=== PATIENT | male | born 1965 | race Caucasian/White ===

== ENCOUNTER 2016-07-01 10:53 | Emergency (ER) | payer OTHER ==
[2016-07-01] MEDS ORDERED: TORAdol 30 mg Injection IM ONE (11:12)
[2016-07-01] MEDS ORDERED: TORAdol 30 mg Injection ONE (11:16)
--- NOTE | 2016-07-01 11:30 | ERPHSYRPT ---
- History of Present Illness Time Seen by Provider: 07/01/16 11:05 Source: patient Patient Subjective Stated Complaint: pt states 2 years ago he had cervicle fusion. pt states for the past 2 months he has had neck pain and left shoulder pain. pt also c/o numbness to left arm. Triage Nursing Assessment: pt pink, warm, dry. 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 no deformity noted. tenderness to left neck and left scapula. radial and brachial pulses strong. Physician History: CC: neck pain Hx: 50 y/o patient with chornic neck pain, worse for a few months. Had prior neck fusion per Dr Blair. He works [employer]. No specific injury. He has tingling in left hand finger tips that has worsened. He has chronic urinary and bowel incontinence from prior rectal surgery not related to neck. No fever or chills. No hx of CA. He called Dr Blair's nurse today, was told they were here in a clinic and he was to come to this ER. Severity: moderate (ibuprofen for pain helps some) Allergies/Adverse Reactions: No Known Drug Allergies Allergy (Unverified 07/01/16 11:08) Home Medications: Ibuprofen [Motrin Ib] 800 mg PO TIDPRN PRN 07/01/16 [History] Hx Tetanus, Diphtheria Vaccination/Date Given: Yes (unknown) Hx Influenza Vaccination/Date Given: No Hx Pneumococcal Vaccination/Date Given: No Immunizations Up to Date: Yes - Review of Systems Constitutional: No Fever, No Chills Abdominal/Gastrointestinal: No Abdominal Pain Genitourinary Symptoms: Incontinence (chronic) Musculoskeletal: Neck Pain, No Back Pain Neurological: Parasthesia, No Focal Weakness, No Headache - Past Medical History Pertinent Past Medical History: Yes Neurological History: Migraines ENT History: No Pertinent History Cardiac History: No Pertinent History Respiratory History: No Pertinent History Endocrine Medical History: No Pertinent History Musculoskeletal History: No Pertinent History GI Medical History: No Pertinent History History: No Pertinent History Psycho-Social History: No Pertinent History Male Reproductive Disorders: Other Other Medical History: bowel incontinence. bladder incontinence - Past Surgical History Past Surgical History: Yes Neuro Surgical History: No Pertinent History Cardiac: No Pertinent History Respiratory: No Pertinent History Gastrointestinal: No Pertinent History Genitourinary: No Pertinent History Musculoskeletal: No Pertinent History Male Surgical History: No Pertinent History Other Surgical History: cervicle fusion. anal surgery - Social History Smoking Status: Current every day smoker How long have you smoked: 30 Exposure to second hand smoke: Yes Drug Use: none Patient Lives Alone: No - Nursing Vital Signs Nursing Vital Signs: Initial Vital Signs Temperature 97.7 F Temperature Source Oral Pulse Rate 67 Respiratory Rate 18 Blood Pressure [Right Arm] 164/95 Pain Intensity 5 - Physical Exam General Appearance: alert Eye Exam: PERRL/EOMI Ears, Nose, Throat Exam: normal ENT inspection, moist mucous membranes Neck Exam: limited range of motion, midline tenderness Respiratory Exam: normal breath sounds, chest tenderness, lungs clear Cardiovascular Exam: regular rate/rhythm Gastrointestinal/Abdomen Exam: soft, No tenderness, No distention Back Exam: normal inspection, normal range of motion Extremity Exam: normal inspection, normal range of motion Neurologic Exam: alert, oriented x 3, cooperative, sensation nml, other ( ambulatory with normal gait), No motor deficits Skin Exam: warm, dry, No rash SpO2 Interpretation: normal SpO2: 99 Oxygen Delivery: Room Air - Course Nursing assessment & vital signs reviewed: Yes - Radiology Exams cervical X-ray Interpretation: Teleradiologist Report (no fx or subluxation, screws fractured) Ordered Tests: Active Orders 24 hr Category Date Time Status CERVICAL SPINE MINIMUM 4 VIEWS Stat Exams 07/01/16 11:14 Completed Medication Summary Discontinued Medications Generic Name Dose Route Start Last Admin Trade Name Jacoby PRN Reason Stop Dose Admin Ketorolac Tromethamine 60 mg 07/01/16 11:12 07/01/16 11:17 Toradol 30 Mg Injection IM 07/01/16 11:13 60 mg STAT ONE Administration Ketorolac Tromethamine Confirm 07/01/16 11:16 Toradol 30 Mg Injection Administered 07/01/16 11:17 Dose 60 mg .ROUTE .STK-MED ONE - Progress Progress Note: 07/01/16 12:[address] Blair at 1PM today. Toradol was given here for symptom relief. Counseled pt/family regarding: diagnosis, need for follow-up, rad results - Departure Time of Disposition: 12:21 Departure Disposition: Home Clinical Impression: Cervicalgia, fractured cervical screw, Cervical radiculopathy Condition: Stable Critical Care Time: No Referrals: LEYDA ROSENBERG [Primary Care Provider] - JIMI BLAIR [ACTIVE STAFF] - 07/01/16 1:00 pm (See Dr Blair at [facility] at 1PM today ) Instructions: Numbness/tingling, Cervical Radiculopathy Additional Instructions: See Dr Blair at 1PM
--- NOTE | 2016-07-01 12:18 | XRAY ---
Indication: Neck pain and left arm numbness. Comparison: February 20, 2015. 6 projections of the cervical spine again demonstrates normal alignment with previous C4-C6 fusion surgery with again anterior fixation plate, screws, and intervertebral spacers unchanged in position. Both C4 screws now appear fractured without displacement. Disc spaces maintained. Stable well-circumscribed ossification posterior to the C6 spinous process either developmental versus old injury. Again no acute fracture, subluxation, or prevertebral soft tissue swelling. Oblique images demonstrates bilateral C4-C6 foraminal narrowing due to uncal spurring. Impression: 1. Again C4-C6 fusion surgery with hardware in situ. C4 screws are now fractured. 2. Bilateral C4-C6 foraminal narrowing, not previously imaged. 3. Negative for acute fracture/subluxation.
[2016-07-01 12:30] VITALS: BP 154/84; PULSE 76; O2SAT 100
== END 2016-07-01 12:30 | disposition home or self-care (01) ==
LOC: ED 10:53
DX: M54.2 Cervicalgia (principal); M54.12 Radiculopathy, cervical region; Z98.890 Other specified postprocedural states; M25.512 Pain in left shoulder; R20.0 Anesthesia of skin
CPT/HCPCS: 72050; 96372; 99284; J1885

== ENCOUNTER 2018-02-05 13:47 | Emergency (ER) | payer OTHER ==
--- NOTE | 2018-02-05 13:51 | ERPHSYRPT ---
- History of Present Illness Time Seen by Provider: 02/05/18 13:49 Source: patient Exam Limitations: no limitations Physician History: 52 y/o white male presents with right post leg pain. began approx 01/25/18, one week after a right shoulder surgery. he denies injury to right lower leg. he describes pain as sharp and shooting down post aspect of right leg to calf with ambulation. pts tramadol not helping. Method of Injury: other (no injury) Occurred: last week (2 weeks ago) Severity of Pain-Max: moderate Severity of Pain-Current: mild (mild to mod) Lower Extremities Pain: hip: right (post), leg: right (post), knee: right (post) , thigh: right (post) Modifying Factors: Improves With: movement (worsens) Associated Symptoms: none Allergies/Adverse Reactions: No Known Drug Allergies Allergy (Verified 02/05/18 14:04) Home Medications: Ibuprofen [Motrin Ib] 800 mg PO TIDPRN PRN 07/01/16 [History] Citalopram Hydrobromide 20 mg* [ceLEXa 20 MG] 20 mg PO DAILY 02/05/18 [ History] Nortriptyline HCl [Pamelor] 25 mg PO HS 02/05/18 [History] Tramadol HCl 50 mg [Ultram 50 mg] 50 mg PO Q6HPRN PRN 02/05/18 [History] Hx Tetanus, Diphtheria Vaccination/Date Given: Yes (unknown) Hx Influenza Vaccination/Date Given: No Hx Pneumococcal Vaccination/Date Given: No - Review of Systems Constitutional: No Symptoms, No Fever, No Chills Eyes: No Symptoms, No Discharge, No Eye Pain Ears, Nose, & Throat: No Symptoms, No Ear Pain, No Nose Congestion, No Mouth Pain, No Mouth Swelling, No Painful Swallowing Respiratory: No Symptoms, No Cough, No Dyspnea, No Stridor, No Wheezing Cardiac: No Symptoms, No Chest Pain, No Palpitations, No Syncope Abdominal/Gastrointestinal: No Symptoms, No Abdominal Pain, No Nausea, No Vomiting, No Diarrhea Genitourinary Symptoms: No Symptoms, No Dysuria, No Frequency, No Hematuria Musculoskeletal: Other (right post hip, thigh, knee and lower leg posteriorly), No Back Pain, No Neck Pain, No Deformity, No Fall, No Injury Neurological: No Symptoms Psychological: No Symptoms Endocrine: No Symptoms Hematologic/Lymphatic: No Symptoms Immunological/Allergic: No Symptoms All Other Systems: Reviewed and Negative - Past Medical History Pertinent Past Medical History: Yes Neurological History: No Pertinent History ENT History: No Pertinent History Cardiac History: No Pertinent History Respiratory History: No Pertinent History Endocrine Medical History: No Pertinent History Musculoskeletal History: Arthritis GI Medical History: No Pertinent History History: No Pertinent History Psycho-Social History: No Pertinent History Male Reproductive Disorders: Other Other Medical History: bowel incontinence. bladder incontinence - Past Surgical History Past Surgical History: Yes Neuro Surgical History: No Pertinent History Cardiac: No Pertinent History Respiratory: No Pertinent History Gastrointestinal: No Pertinent History Genitourinary: No Pertinent History Musculoskeletal: No Pertinent History Male Surgical History: No Pertinent History Other Surgical History: cervicle fusion. anal surgery - Social History Smoking Status: Current every day smoker How long have you smoked: 30 Exposure to second hand smoke: Yes Drug Use: none Patient Lives Alone: No - Nursing Vital Signs Nursing Vital Signs: Initial Vital Signs Temperature 98.2 F 02/05/18 13:49 Pulse Rate 79 02/05/18 13:49 Respiratory Rate 16 02/05/18 13:49 Blood Pressure 162/98 02/05/18 13:49 O2 Sat by Pulse Oximetry 97 02/05/18 13:49 Pain Scale Pain Intensity 7 - Physical Exam General Appearance: mild distress, alert Eyes, Ears, Nose, Throat Exam: normal ENT inspection, TMs normal, moist mucous membranes Neck Exam: normal inspection, non-tender, supple, full range of motion Cardiovascular/Respiratory Exam: chest non-tender, normal breath sounds, regular rate/rhythm, heart sounds normal, no respiratory distress Gastrointestinal/Abdominal Exam: non-tender, soft, no organomegaly, no hernia, No guarding, No tenderness Back Exam: normal inspection, normal range of motion, No CVA tenderness, No vertebral tenderness Hips Exam: right: normal inspection, normal range of motion, no evidence of injury, pain (mild posterolateral) Legs Exam: right leg: normal inspection, normal range of motion, no evidence of injury, soft tissue tenderness (posteriorly) Ankle Exam: bilateral ankle: non-tender, normal inspection, normal range of motion, no evidence of injury Foot Exam: bilateral foot: non-tender, normal inspection, normal range of motion , no evidence of injury Neuro/Tendon Exam: normal sensation, normal motor functions, normal tendon functions, responds to pain, no evidence tendon injury, No motor deficit, No sensory deficit Mental Status Exam: alert, oriented x 3, cooperative Skin Exam: normal color, warm SpO2 Interpretation: normal Oxygen Delivery: Room Air - Course Nursing assessment & vital signs reviewed: Yes - Progress Progress: unchanged Counseled pt/family regarding: diagnosis, need for follow-up - Departure Time of Disposition: 14:14 Departure Disposition: Home Clinical Impression: Musculoskeletal pain Condition: Stable Critical Care Time: No Referrals: KAREN BRICENO [employer] [Primary Care Provider] - Additional Instructions: stop tramadol while on norco. follow up with primary doctor or orthopedic surgeon 02/08/18 for further management Prescriptions: Hydrocodone/APAP 5/325 [Nancy 5/325 mg] 1 each PO Q12H PRN PRN #6 tablet MDD 2 PRN Reason: Pain Cyclobenzaprine HCl 10 mg [Flexeril 10 MG] 10 mg PO TID #12 tablet Prednisone 10 mg [Deltasone 10 mg] 10 mg PO TID #12 tablet
[2018-02-05 14:31] VITALS: BP 154/93; PULSE 74; O2SAT 95
== END 2018-02-05 14:34 | disposition home or self-care (01) ==
LOC: ED 13:47
DX: M79.18 Myalgia, other site (principal); M25.551 Pain in right hip; M79.651 Pain in right thigh; M79.604 Pain in right leg; Z98.890 Other specified postprocedural states; Z79.899 Other long term (current) drug therapy
CPT/HCPCS: 99283

== ENCOUNTER 2018-04-03 09:19 | Emergency (ER) | payer OTHER ==
[2018-04-03] MEDS ORDERED: TORAdol 30 mg Injection IM ONE (09:34)
[2018-04-03 09:38] VITALS: BP 154/91; PULSE 67; O2SAT 98
--- NOTE | 2018-04-03 09:39 | ERPHSYRPT ---
- History of Present Illness Time Seen by Provider: 04/03/18 09:28 Source: patient Exam Limitations: no limitations Physician History: 52-year-old white male arrives with complaint of pain in his right low sacral area radiating down his right hip symptoms since January. Patient denies any new injury he has a history of chronic pain in his shoulder for which he takes tramadol. He was seen in this emergency room approximately 2 months ago for the same complaint. patient states he has been seen by his family doctor for the same complaint in the past. He states tramadol is not helping his pain. Past medical history includes arthritis, bowel incontinence, bladder incontinence Past surgical history includes surgical fusion and anal surgery. Timing/Duration: other (3 months) Severity: moderate Modifying Factors: Improves With: other Associated Symptoms: other (pain in right hip radiating down right leg since january), No nausea, No vomiting, No abdominal pain, No shortness of breath, No heartburn, No diaphoresis, No cough, No chills, No chest pain, No fever, No headaches, No loss of appetite, No malaise, No rash, No syncope, No seizure, No weakness Allergies/Adverse Reactions: No Known Drug Allergies Allergy (Verified 04/03/18 09:38) Home Medications: Ibuprofen [Motrin Ib] 400 mg PO QIDPRN PRN 07/01/16 [History] Citalopram Hydrobromide 20 mg* [ceLEXa 20 MG] 20 mg PO DAILY 02/05/18 [ History] Tramadol HCl 50 mg [Ultram 50 mg] 50 mg PO Q6HPRN PRN 02/05/18 [History] Hx Tetanus, Diphtheria Vaccination/Date Given: Yes (unknown) Hx Influenza Vaccination/Date Given: No Hx Pneumococcal Vaccination/Date Given: No - Review of Systems Constitutional: No Fever, No Chills Eyes: No Symptoms Ears, Nose, & Throat: No Symptoms Respiratory: No Cough, No Dyspnea Cardiac: No Chest Pain, No Edema, No Syncope Abdominal/Gastrointestinal: No Abdominal Pain, No Nausea, No Vomiting, No Diarrhea Genitourinary Symptoms: No Dysuria Musculoskeletal: Back Pain, Other (right hip pain) Skin: No Rash Neurological: No Dizziness, No Focal Weakness, No Sensory Changes Psychological: No Symptoms Endocrine: No Symptoms All Other Systems: Reviewed and Negative - Past Medical History Pertinent Past Medical History: Yes Neurological History: No Pertinent History ENT History: No Pertinent History Cardiac History: No Pertinent History Respiratory History: No Pertinent History Endocrine Medical History: No Pertinent History Musculoskeletal History: Arthritis GI Medical History: No Pertinent History History: No Pertinent History Psycho-Social History: No Pertinent History Male Reproductive Disorders: Other Other Medical History: bowel incontinence. bladder incontinence - Past Surgical History Past Surgical History: Yes Neuro Surgical History: No Pertinent History Cardiac: No Pertinent History Respiratory: No Pertinent History Gastrointestinal: No Pertinent History Genitourinary: No Pertinent History Musculoskeletal: No Pertinent History Male Surgical History: No Pertinent History Other Surgical History: cervicle fusion. anal surgery - Social History Smoking Status: Current every day smoker How long have you smoked: 30 Exposure to second hand smoke: Yes Drug Use: none Patient Lives Alone: No - Nursing Vital Signs Nursing Vital Signs: Initial Vital Signs Temperature 98.3 F 04/03/18 09:24 Pulse Rate 67 04/03/18 09:24 Blood Pressure 154/91 04/03/18 09:24 O2 Sat by Pulse Oximetry 98 04/03/18 09:24 Pain Scale Pain Intensity [] 9 Pain Intensity 9 - Physical Exam General Appearance: no apparent distress, alert Eye Exam: PERRL/EOMI, eyes nml inspection Ears, Nose, Throat Exam: normal ENT inspection, TMs normal, pharynx normal, moist mucous membranes Neck Exam: normal inspection, non-tender, supple, full range of motion Respiratory Exam: normal breath sounds, lungs clear, No respiratory distress Cardiovascular Exam: regular rate/rhythm, normal heart sounds, normal peripheral pulses Gastrointestinal/Abdomen Exam: soft, normal bowel sounds, No tenderness, No mass Back Exam: normal range of motion, other (pain right low sacral area with palpation), No CVA tenderness, No vertebral tenderness Extremity Exam: normal inspection, normal range of motion, pelvis stable Neurologic Exam: alert, oriented x 3, 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, 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, normal mood/affect, nml cerebellar function, nml station & gait, sensation nml, No motor deficits Skin Exam: normal color, warm, dry, No rash Lymphatic Exam: No adenopathy SpO2 Interpretation: normal - Radiology Exams Pelvis X-ray Interpretation: Interpreted by me (no acute fractures or subluxations) L-Spine X-ray Interpretation: Interpreted by me (mild degenerative changes, no acute fractures or subluxations) Ordered Tests: Active Orders 24 hr Category Date Time Status LUMBAR LIMITED (2 OR 3 VIEWS) Stat Exams 04/03/18 09:43 Taken PELVIS (1 OR 2 VIEWS) Stat Exams 04/03/18 09:43 Taken Medication Summary Discontinued Medications Generic Name Dose Route Start Last Admin Trade Name Jacoby PRN Reason Stop Dose Admin Ketorolac Tromethamine 60 mg 04/03/18 09:34 04/03/18 09:59 Toradol 30 Mg Injection IM 04/03/18 09:35 60 mg STAT ONE Administration Ketorolac Tromethamine Confirm 04/03/18 09:42 Toradol 30 Mg Injection Administered 04/03/18 09:43 Dose 60 mg .ROUTE .ST-MED ONE - Progress Progress: improved Progress Note: 04/03/18 10:23 52-year-old white male with history of chronic pain arrives with complaint of pain in his right low back radiating down his right hip symptoms since January. Patient states he is seeing his family Dr. secondary to this he is also seen Dr. Mathew secondary to this. He states that he is told Dr. Mathew that is tramadol is not working well for him but Dr. Mathew does not want to change this. Patient does not appear to be in acute distress x-ray the patient's pelvis lumbar spine no acute fractures no subluxations mild degenerative changes on lumbar spine. Patient with full range of motion to all extremities. Patient is given Toradol 60 mg IM with mild improvement of his pain he states he is not completely pain-free but better. Will go ahead and write for Flexeril for the patient he is to take this 3 times a day. He is to continue ibuprofen and tramadol as recommended by his orthopedist/ family doctor. He is to follow-up with his family doctor or Dr. Mathew. He is return for acute distress or for severe symptoms. - Departure Time of Disposition: 10:25 Departure Disposition: Home Clinical Impression: Right hip pain Back pain Qualifiers: Back pain location: low back pain Chronicity: chronic Back pain laterality: right Sciatica presence: with sciatica Sciatica laterality: sciatica of right side Qualified Code(s): M54.41 - Lumbago with sciatica, right side; G89.29 - Other chronic pain Condition: Fair Critical Care Time: No Referrals: KAREN BRICENO [employer]IST[employer] [Primary Care Provider] - Instructions: Chronic Pain (DC) Additional Instructions: Return home. Flexeril 10 mg orally 3 times a day for 5 days. continue tramadol and ibuprofen as recommended by your orthopedist/family doctor. Follow-up with your orthopedist/family doctor. Return for acute distress or for severe symptoms. Prescriptions: Cyclobenzaprine HCl [Flexeril] 10 mg PO TID #15 tablet
[2018-04-03] MEDS ORDERED: TORAdol 30 mg Injection ONE (09:42)
--- NOTE | 2018-04-03 16:14 | XRAY ---
Indication: Right low back pain radiating right hip/leg. Comparison: None Single AP pelvis obtained. No bony, articular, or soft tissue abnormalities. Lumbar spine reported separately.
--- NOTE | 2018-04-03 16:16 | XRAY ---
Indication: Right low back pain radiating right hip/leg. Comparison: February 24, 2017. 3 views of the lumbar spine unchanged again demonstrating normal alignment, mild multilevel anterior endplate spurring, mild L5-S1 disc space narrowing, mild bilateral L5-S1 degenerative facet arthropathy, and mild scattered aortic calcifications. No new/acute findings.
== END 2018-04-03 10:39 | disposition home or self-care (01) ==
LOC: ED 09:19
DX: M25.551 Pain in right hip (principal); M54.5 Low back pain; Z79.899 Other long term (current) drug therapy
CPT/HCPCS: 72100; 72170; 96372; 99284; J1885

== ENCOUNTER 2018-05-31 10:48 | Emergency (ER) | payer OTHER ==
[2018-05-31] MEDS ORDERED: TORAdol 30 mg Injection IV ONE (11:46)
--- NOTE | 2018-05-31 11:49 | ERPHSYRPT ---
- History of Present Illness Time Seen by Provider: 05/31/18 11:47 Source: patient Exam Limitations: no limitations Patient Subjective Stated Complaint: Pt states "My left testicle has been swollen for about a week." Triage Nursing Assessment: Pt alert and oriented X 3, skin pwd Pt ambulates with a wide legged walk. Pt able to speak in clear full sentences. pt left testicle is approx 3 times larger than the right. Physician History: 52-year-old white male arrives with complaint of pain and swelling left testicle for one week. He denies any injuries no fevers no nausea no vomiting. Past medical history includes arthritis, bowel incontinence, bladder incontinence. Past surgical history includes cervical fusion anal surgery Social history patient denies tobacco alcohol or illicit drug use Timing/Duration: week(s) (1 week) Severity: moderate Modifying Factors: Improves With: nothing Associated Symptoms: other (pain and swelling left testicle), No nausea, No vomiting, No abdominal pain, No shortness of breath, No heartburn, No diaphoresis, No cough, No chest pain, No fever, No headaches, No loss of appetite, No malaise, No rash, No syncope, No seizure, No weakness Allergies/Adverse Reactions: No Known Drug Allergies Allergy (Verified 04/03/18 09:38) Home Medications: Ibuprofen [Motrin Ib] 400 mg PO QIDPRN PRN 07/01/16 [History] Citalopram Hydrobromide 20 mg* [ceLEXa 20 MG] 20 mg PO DAILY 02/05/18 [ History] Hx Tetanus, Diphtheria Vaccination/Date Given: No Hx Influenza Vaccination/Date Given: No Hx Pneumococcal Vaccination/Date Given: No Immunizations Up to Date: Yes - Review of Systems Constitutional: No Fever, No Chills Eyes: No Symptoms Ears, Nose, & Throat: No Symptoms Respiratory: No Cough, No Dyspnea Cardiac: No Chest Pain, No Edema, No Syncope Abdominal/Gastrointestinal: No Abdominal Pain, No Nausea, No Vomiting, No Diarrhea Genitourinary Symptoms: Testicle Pain (pain and swelling left testicle) Musculoskeletal: No Back Pain, No Neck Pain Skin: No Rash Neurological: No Dizziness, No Focal Weakness, No Sensory Changes Psychological: No Symptoms Endocrine: No Symptoms All Other Systems: Reviewed and Negative - Past Medical History Pertinent Past Medical History: Yes Neurological History: No Pertinent History ENT History: No Pertinent History Cardiac History: No Pertinent History Respiratory History: No Pertinent History Endocrine Medical History: No Pertinent History Musculoskeletal History: Arthritis GI Medical History: No Pertinent History History: No Pertinent History Psycho-Social History: No Pertinent History Male Reproductive Disorders: Other Other Medical History: bowel incontinence. bladder incontinence - Past Surgical History Past Surgical History: Yes Neuro Surgical History: No Pertinent History Cardiac: No Pertinent History Respiratory: No Pertinent History Gastrointestinal: No Pertinent History Genitourinary: No Pertinent History Musculoskeletal: No Pertinent History Male Surgical History: No Pertinent History Other Surgical History: cervicle fusion. anal surgery - Social History Smoking Status: Current every day smoker How long have you smoked: years Exposure to second hand smoke: Yes Drug Use: none Patient Lives Alone: Yes - Nursing Vital Signs Nursing Vital Signs: Initial Vital Signs Temperature 98.3 F 05/31/18 10:55 Pulse Rate 68 05/31/18 10:55 Respiratory Rate 16 05/31/18 10:55 Blood Pressure 150/80 05/31/18 10:55 O2 Sat by Pulse Oximetry 99 05/31/18 10:55 Pain Scale Pain Intensity 4 - Physical Exam General Appearance: no apparent distress, alert Eye Exam: PERRL/EOMI Ears, Nose, Throat Exam: normal ENT inspection, TMs normal, pharynx normal, moist mucous membranes Neck Exam: normal inspection, non-tender, supple, full range of motion Respiratory Exam: normal breath sounds, lungs clear, No respiratory distress Cardiovascular Exam: regular rate/rhythm, normal heart sounds, normal peripheral pulses, capillary refill <2 sec Gastrointestinal/Abdomen Exam: soft, normal bowel sounds, No tenderness, No mass Male Genitalia Exam: other (both testicles descended left testicle is enlarged and tender) Back Exam: normal inspection, normal range of motion, No CVA tenderness, No vertebral tenderness Extremity Exam: normal inspection, normal range of motion, pelvis stable Neurologic Exam: alert, oriented x 3, cooperative, animal cytologist II-XII nml as tested, normal mood/affect, nml cerebellar function, nml station & gait, sensation nml, No motor deficits Skin Exam: normal color, warm, dry, No rash Lymphatic Exam: No adenopathy SpO2 Interpretation: normal (99%) SpO2: 99 - Course Nursing assessment & vital signs reviewed: Yes - Radiology Ultrasound Exam Other Ultrasound: discussed w/radiologist (testicular ultrasound: Impression: 1. Left testicle and left epididymis edema with hyperemic color Doppler flow favoring orchiepididymitis with reactive hydrocele. 2. Negative right testicular sonogram.) Ordered Tests: Active Orders 24 hr Category Date Time Status IV Insertion STAT Care 05/31/18 11:45 Active TESTICLE [US] Stat Exams 05/31/18 12:15 Completed BMP Stat Lab 05/31/18 12:33 Received CBC W DIFF Stat Lab 05/31/18 12:33 Completed CULTURE,URINE Stat Lab 05/31/18 12:33 Received UA W/RFX UR CULTURE Stat Lab 05/31/18 12:33 Completed Medication Summary Discontinued Medications Generic Name Dose Route Start Last Admin Trade Name Freq PRN Reason Stop Dose Admin Ceftriaxone Sodium/Dextrose 1 g in 50 mls @ 100 mls/hr 05/31/18 12:51 13:22 Rocephin 1 Gm-D5w 50 Ml Bag IV 05/31/18 13:20 100 ml/hr STAT STA 100 mls/hr Administration Ceftriaxone Sodium/Dextrose Confirm 05/31/18 13:17 Rocephin 1 Gm-D5w 50 Ml Bag Administered 05/31/18 13:18 Dose 1 g in 50 mls @ ud IV .STK-MED ONE Ketorolac Tromethamine 30 mg 05/31/18 11:46 05/31/18 13:21 Toradol 30 Mg Injection IV 05/31/18 11:47 30 mg STAT ONE Administration Ketorolac Tromethamine Confirm 05/31/18 13:17 Toradol 30 Mg Injection Administered 05/31/18 13:18 Dose 30 mg .ROUTE .STK-MED ONE Lab/Rad Data: Laboratory Result Diagrams 05/31/18 12:33 Laboratory Results 05/31/18 05/31/18 Range/Units 12:33 12:33 WBC 6.8 (4.0-10.5) K/mm3 RBC 4.27 (4.1-5.6) M/mm3 Hgb 12.6 (12.5-18.0) gm/dl Hct 37.2 L (42-50) % MCV 87.1 (78-100) fl MCH 29.5 (26-32) pg MCHC 33.9 (32-36) g/dl RDW 13.8 (11.5-14.0) % Plt Count 258 (150-450) K/mm3 MPV 9.7 H (6-9.5) fl Gran % 71.7 H (36.0-66.0) % Eos # (Auto) 0.11 (0-0.5) Absolute Lymphs (auto) 1.21 (1.0-4.6) Absolute Monos (auto) 0.59 (0.0-1.3) Lymphocytes % 17.7 L (24.0-44.0) % Monocytes % 8.6 (0.0-12.0) % Eosinophils % 1.6 (0.00-5.0) % Basophils % 0.4 (0.0-0.4) % Absolute Granulocytes 4.90 (1.4-6.9) Basophils # 0.03 (0-0.4) Urine Color STRAW (YELLOW) Urine Appearance CLEAR (CLEAR) Urine pH 5.0 (5-6) Ur Specific [place] 1.003 (1.005-1.025) Urine Protein NEGATIVE (Negative) Urine Ketones TRACE (NEGATIVE) Urine Blood NEGATIVE (0-5) Don/ul Urine Nitrite NEGATIVE (NEGATIVE) Urine Bilirubin NEGATIVE (NEGATIVE) Urine Urobilinogen NEGATIVE (0-1) mg/dL Ur Leukocyte Esterase TRACE (NEGATIVE) Urine WBC (Auto) 3-5 (0-5) /HPF Urine RBC (Auto) NONE (0-2) /HPF U Epithel Cells (Auto) NONE (FEW) /HPF Urine Bacteria (Auto) MODERATE (NEGATIVE) /HPF Urine Culture Reflexed YES (NO) Urine Glucose NEGATIVE (NEGATIVE) mg/dL - Progress Progress: improved Progress Note: 05/31/18 13:24 52-year-old white male arrives with complaint of left testicle pain and swelling symptoms for one week. Patient with ultrasound of the left testicle remarkable for left testicle and left epididymis edema with hyperemic color Doppler flow favoring orchiepididymitis with reactive hydrocele.. Right testicle is unremarkable. Patient's urine is remarkable for 3-5 white cells and trace for ketones negative nitrites and negative leukocyte esterase. Orders place for chlamydia and GC urine. Will go ahead and place patient on doxycycline 100 mg orally twice a day for 10 days patient also has been given Rocephin 1 g IV. Inspect report shows the patient received tramadol 50 mg #120 tablets on May 12, 2018 however he states he has not filled these in the month. Patient given Toradol for pain patient will be of recommended to follow-up with his family doctor for further pain meds for pain not controlled with his tramadol. - Departure Time of Disposition: 13:26 Departure Disposition: Home Clinical Impression: Left testicular pain, Epididymitis Condition: Fair Critical Care Time: No Referrals: KAREN BRICENO SUBSEA ENGINEER [Primary Care Provider] - HUBER BERNABE [COURTESY STAFF] - Additional Instructions: Return home. Plenty of fluids. Doxycycline 100 mg orally twice a day for 10 days. Tramadol as prescribed by your family doctor and/or Dr. Mathew has needed for pain. Follow-up with your family doctor or Dr. Bernabe .Call when you get home and arrange an appointment. Return for acute distress or for severe symptoms. Prescriptions: Doxycycline Hyclate 100 mg [Vibramycin 100 MG] 100 mg PO BID #20 tab
--- NOTE | 2018-05-31 12:35 | XRAY ---
Indication: Left testicle pain and swelling 1 week. Two-dimensional testicular sonogram performed. Comparison: None Both testicles homogeneous in echogenicity with the left testicle slightly diminished in echogenicity suggesting edema. Right testicle measures 4.5 x 2.7 x 2.2 cm and the left measures 4.3 x 3.2 x 2.4 cm. Right testicle demonstrates normal color Doppler. Left testicle demonstrates hyperemic color Doppler. Prominent left epididymis with hyperemic color Doppler flow and tiny 5 mm cyst. Right epididymis demonstrates 6 mm cysts. Small left-sided hydrocele. Impression: 1. Left testicle and left epididymis edema with hyperemic color Doppler flow favoring orchiepididymitis with reactive hydrocele. 2. Negative right testicular sonogram.
[2018-05-31] MEDS ORDERED: ROCEPHIN 1 Gm-D5w 50 ml Bag** 1 G/50 ML IVPB IV STA (12:51)
[2018-05-31 12:55] LABS: BASOPHIL % 0.4 % (0.0-0.4); Basophil (Absolute #) 0.03 (0-0.4); Eosinophil % 1.6 % (0.00-5.0); Eosinophil (Absolute #) 0.11 (0-0.5); Granulocytes % 71.7 % (36.0-66.0); Hematocrit 37.2 % (42-50); Hemoglobin 12.6 gm/dl (12.5-18.0); Lymphocyte (Absolute #) 1.21 (1.0-4.6); Lymphocytes % 17.7 % (24.0-44.0); Mean Cell Volume 87.1 fl (78-100); Mean Corpuscular Hemoglobin 29.5 pg (26-32); Mean Corpuscular Hgb Concent. 33.9 g/dl (32-36); Mean Platelet Volume 9.7 fl (6-9.5); Monocyte (Absolute #) 0.59 (0.0-1.3); Monocytes % 8.6 % (0.0-12.0); Platelet Count 258 K/mm3 (150-450); Red Blood Count 4.27 M/mm3 (4.1-5.6); Red Cell Distribution Width 13.8 % (11.5-14.0); White Blood Count 6.8 K/mm3 (4.0-10.5)
[2018-05-31 13:05] LABS: Appearance CLEAR (CLEAR); Bacteria MODERATE /HPF (NEGATIVE); Bilirubin NEGATIVE (NEGATIVE); Blood NEGATIVE Ery/ul (0-5); Glucose NEGATIVE (NEGATIVE); Ketones TRACE (NEGATIVE); Leukocyte Esterase TRACE (NEGATIVE); Nitrite NEGATIVE (NEGATIVE); Protein,Urine Dip NEGATIVE (Negative); Specific Gravity 1.003 (1.005-1.025); Urobilinogen NEGATIVE mg/dL (0-1)
[2018-05-31] MEDS ORDERED: ROCEPHIN 1 Gm-D5w 50 ml Bag** 1 G/50 ML IVPB IV ONE (13:17)
[2018-05-31] MEDS ORDERED: TORAdol 30 mg Injection ONE (13:17)
[2018-05-31 13:33] LABS: ANION GAP 12.7 MEQ/L (5-15); BLOOD UREA NITROGEN 10 mg/dL (9-20); CHLORIDE 105 mmol/L (98-107); Carbon Dioxide 24 mmol/L (22-30); Creatinine 1 0.91 mg/dL (0.66-1.25); Glucose 88 mg/dL (74-106); Potassium 3.7 mmol/L (3.5-5.1); SODIUM 138 mmol/L (137-145)
[2018-05-31 14:00] VITALS: BP 146/82; PULSE 75; O2SAT 97
[2018-05-31 15:10] LABS: CHLAMYDIA URINE NEGATIVE; GC URINE NEGATIVE
== END 2018-05-31 14:06 | disposition home or self-care (01) ==
LOC: ED 10:48
DX: N50.812 Left testicular pain (principal); N45.1 Epididymitis; M19.90 Unspecified osteoarthritis, unspecified site; N32.81 Overactive bladder; N39.45 Continuous leakage; R15.9 Full incontinence of feces; Z72.0 Tobacco use; Z79.899 Other long term (current) drug therapy
CPT/HCPCS: 36000; 36415; 76870; 80048; 81001; 85025; 87077; 87086; 87186; 87491; 87591; 96365; 96374; 99284; J0696; J1885

== ENCOUNTER 2019-02-06 17:00 | Emergency (ER) | payer OTHER ==
--- NOTE | 2019-02-06 17:19 | ERPHSYRPT ---
- History of Present Illness Time Seen by Provider: 02/06/19 17:17 Source: patient Exam Limitations: no limitations Patient Subjective Stated Complaint: pt reports he was reaching up into his attic with his right arm when he heard a pop, states he has pain increased with movement to the right shoulder and some numbness in the left hand. Triage Nursing Assessment: pt is aox3, pupils perrl, resps easy and non labored , radial pulses strong and equal, cap refill < 3 seconds, pt skin pink warm dry. pt ROM limited due to pain with movement. no obvious injury or deformity noted. Physician History: pt reports he was reaching up into his attic with his right arm when he heard a pop, states he has pain increased with movement to the right shoulder and some numbness in the left hand. Occurred: just prior to arrival Method of Injury: twisted Quality: constant Severity of Pain-Max: moderate Severity of Pain-Current: moderate Extremities Pain Location: shoulder: left Modifying Factors: Improves With: nothing Associated Symptoms: none Allergies/Adverse Reactions: No Known Drug Allergies Allergy (Verified 02/06/19 17:13) Home Medications: Ibuprofen [Motrin Ib] 400 mg PO QIDPRN PRN 07/01/16 [History] Citalopram Hydrobromide 20 mg* [ceLEXa 20 MG] 20 mg PO DAILY 02/05/18 [ History] Hx Tetanus, Diphtheria Vaccination/Date Given: Yes Hx Influenza Vaccination/Date Given: No Hx Pneumococcal Vaccination/Date Given: No Immunizations Up to Date: Yes - Review of Systems Constitutional: No Symptoms Eyes: No Symptoms Ears, Nose, & Throat: No Symptoms Respiratory: No Symptoms Cardiac: No Symptoms Musculoskeletal: Joint Pain (left shoulder) - Past Medical History Pertinent Past Medical History: Yes Neurological History: No Pertinent History ENT History: No Pertinent History Cardiac History: No Pertinent History Respiratory History: No Pertinent History Endocrine Medical History: No Pertinent History Musculoskeletal History: Arthritis GI Medical History: No Pertinent History History: No Pertinent History Psycho-Social History: No Pertinent History Male Reproductive Disorders: Other Other Medical History: bowel incontinence. bladder incontinence - Past Surgical History Past Surgical History: Yes Neuro Surgical History: No Pertinent History Cardiac: No Pertinent History Respiratory: No Pertinent History Gastrointestinal: No Pertinent History Genitourinary: No Pertinent History Musculoskeletal: No Pertinent History, Orthopedic Surgery Male Surgical History: No Pertinent History Other Surgical History: shoulder surgery x 2 most recent November 2018. cervicle fusion. anal surgery - Social History Smoking Status: Current every day smoker How long have you smoked: years Exposure to second hand smoke: Yes Drug Use: none Patient Lives Alone: Yes - Nursing Vital Signs Nursing Vital Signs: Initial Vital Signs Temperature 97.7 F 02/06/19 17:04 Pulse Rate 71 02/06/19 17:04 Respiratory Rate 20 02/06/19 17:04 Blood Pressure 131/75 02/06/19 17:04 O2 Sat by Pulse Oximetry 95 02/06/19 17:04 Pain Scale Pain Intensity 4 - Physical Exam General Appearance: no apparent distress Eyes, Ears, Nose, Throat Exam: normal ENT inspection Neck Exam: normal inspection Cardiovascular/Respiratory Exam: chest non-tender Back Exam: normal inspection Shoulder Exam: limited ROM, soft tissue tenderness SpO2: 95 - Course Nursing assessment & vital signs reviewed: Yes Ordered Tests: Active Orders 24 hr Category Date Time Status SHOULDER Stat Exams 02/06/19 17:28 Taken - Progress Progress: improved, pain not gone completely Counseled pt/family regarding: diagnosis, need for follow-up, rad results - Departure Departure Disposition: Home Clinical Impression: Left shoulder strain Qualifiers: Encounter type: initial encounter Qualified Code(s): S46.912A - Strain of unspecified muscle, fascia and tendon at shoulder and upper arm level, left arm , initial encounter Condition: Stable Critical Care Time: No Referrals: KAREN BRICENO RUSSIAN HISTORY PROFESSOR [Primary Care Provider] - Instructions: Shoulder Sprain (DC), Shoulder Tendinopathy (DC) Additional Instructions: SPRAINS/STRAINS/CONTUSIONS 1. Rest the affected area as much as possible for the next few days. 2. Apply ice to the affected area for 20-30 minutes at a time, several times a day. 3. If you receive an elastic wrap, wear it only while awake for comfort and support. Re-wrap the elastic wrap if it feels too tight or too loose. 4. If swelling is present, elevate the affected part above the level of the heart for at least 2 to 3 days. 5. Use splints, slings, or crutches as instructed. 6. Watch for severe swelling, coldness, numbness, and discoloration of the fingers and toes. See your family physician or return to the emergency department if any of these are noted. Please take tylenol 650 mg with ibuprofen 400 mg orally three times a day, Discharge/Care Plan OPAL JOSEPHSUE SALTER was seen on 02/06/19 in the Emergency Room. The patient was counseled regarding Diagnosis,Lab results, Imaging studies, need for follow up and when to return to the Emergency Room. Prescriptions given: Discharge Note I have spoken with the patient and/or caregivers. I have explained the patient' s condition, diagnosis and treatment plan based on the information available to me at this time. I have answered the patient's and/or caregiver's questions and addressed any concerns. The patient and/or caregivers have as good understanding of the patient's diagnosis, condition and treatment plan as can be expected at this point. The vital signs have been stable. The patient's condition is stable and appropriate for discharge from the emergency department. The patient will pursue further outpatient evaluation with the primary care physician or other designated or consulting physician as outlined in the discharge instructions. The patient and/or caregivers are agreeable to this plan of care and follow-up instructions have been explained in detail. The patient and/or caregivers have received these instruction. The patient/and or caregivers are aware that any significant change in condition or worsening of symptoms should prompt an immediate return to this or the closest emergency department or call 911.
[2019-02-06] MEDS ORDERED: TORAdol 30 mg Injection IM ONE (17:40)
[2019-02-06] MEDS ORDERED: TORAdol 30 mg Injection ONE (17:43)
[2019-02-06 18:00] VITALS: BP 131/78; PULSE 72; O2SAT 99
--- NOTE | 2019-02-06 20:18 | XRAY ---
Indication: Pain following injury. Comparison: January 25, 2019. 3 views of the left shoulder again demonstrates moderate AC degenerative arthropathy, left lung calcified granulomas, and lower cervical fusion surgery. No new/acute bony, articular, or soft tissue abnormalities.
== END 2019-02-06 18:02 | disposition home or self-care (01) ==
LOC: ED 17:00
DX: S46.912A Strain of unspecified muscle, fascia and tendon at shoulder and upper arm level, left arm, initial encounter (principal); X50.0XXA Overexertion from strenuous movement or load, initial encounter
CPT/HCPCS: 73030; 96372; 99284; J1885

== ENCOUNTER 2019-05-20 14:19 | Emergency (ER) | payer OTHER ==
[2019-05-20 14:30] VITALS: O2SAT 98
--- NOTE | 2019-05-20 15:36 | XRAY ---
Indication: Pain. Comparison: February 22, 2019. 3 views of the left shoulder demonstrates interval resection distal clavicle with remnant inferior spurring and stable left lung calcified granuloma. No other bony, articular, or soft tissue abnormalities.
[2019-05-20 15:40] VITALS: BP 102/62; PULSE 74
--- NOTE | 2019-05-20 15:40 | ERPHSYRPT ---
- History of Present Illness Time Seen by Provider: 05/20/19 14:40 Source: patient Exam Limitations: no limitations Patient Subjective Stated Complaint: Pt states "I had shoulder surgery [address] Tapia to remove spurs and a cyst, a couple of days ago it started to swell and I rolled over and a bunch of puss ran out." Triage Nursing Assessment: pt presented alert and oriented x 3, skin pwd pt ambualtes with an upright steady gait, able to speak in clear full sentences pt in no apparant respiratory distress, pt left shoulder slightly red. Physician History: surgery left shoulder 6 weeks ago.. Now purulent drainage from the incision. Occurred: this morning Quality: intermittent Severity of Pain-Max: moderate Severity of Pain-Current: moderate Extremities Pain Location: shoulder: left (pus draining from the incision) Modifying Factors: Improves With: movement Associated Symptoms: No fever Allergies/Adverse Reactions: No Known Drug Allergies Allergy (Verified 02/06/19 17:13) Home Medications: Ibuprofen [Motrin Ib] 400 mg PO QIDPRN PRN 07/01/16 [History] Hx Tetanus, Diphtheria Vaccination/Date Given: No Hx Influenza Vaccination/Date Given: No Hx Pneumococcal Vaccination/Date Given: No Immunizations Up to Date: Yes - Review of Systems Constitutional: No Fever, No Chills Eyes: No Symptoms Ears, Nose, & Throat: No Symptoms Respiratory: No Cough, No Dyspnea Cardiac: No Chest Pain, No Edema, No Syncope Abdominal/Gastrointestinal: No Abdominal Pain, No Nausea, No Vomiting, No Diarrhea Genitourinary Symptoms: No Dysuria Musculoskeletal: Joint Pain, No Back Pain, No Neck Pain Skin: Skin Lesions, No Rash Neurological: No Dizziness, No Focal Weakness, No Sensory Changes Psychological: No Symptoms Endocrine: No Symptoms All Other Systems: Reviewed and Negative - Past Medical History Pertinent Past Medical History: Yes Neurological History: No Pertinent History ENT History: No Pertinent History Cardiac History: No Pertinent History Respiratory History: No Pertinent History Endocrine Medical History: No Pertinent History Musculoskeletal History: Arthritis GI Medical History: No Pertinent History History: No Pertinent History Psycho-Social History: No Pertinent History Male Reproductive Disorders: Other Other Medical History: bowel incontinence. bladder incontinence - Past Surgical History Past Surgical History: Yes Neuro Surgical History: No Pertinent History Cardiac: No Pertinent History Respiratory: No Pertinent History Gastrointestinal: No Pertinent History Genitourinary: No Pertinent History Musculoskeletal: No Pertinent History, Orthopedic Surgery Male Surgical History: No Pertinent History Other Surgical History: shoulder surgery x 2 most recent November 2018. cervicle fusion. anal surgery - Social History Smoking Status: Current every day smoker How long have you smoked: years Exposure to second hand smoke: Yes Drug Use: none Patient Lives Alone: No - Nursing Vital Signs Nursing Vital Signs: Initial Vital Signs Temperature 98.6 F 05/20/19 14:26 Pulse Rate 84 05/20/19 14:26 Respiratory Rate 18 05/20/19 14:26 Blood Pressure 133/71 05/20/19 14:26 O2 Sat by Pulse Oximetry 98 05/20/19 14:26 Pain Scale Pain Intensity 6 - Physical Exam General Appearance: mild distress, alert Eyes, Ears, Nose, Throat Exam: moist mucous membranes Neck Exam: non-tender, supple Cardiovascular/Respiratory Exam: chest non-tender, normal breath sounds, regular rate/rhythm, no respiratory distress Abdominal Exam: non-tender, No guarding Back Exam: normal inspection, No vertebral tenderness Shoulder Exam: soft tissue tenderness, swelling (purulent drainage from incision ) Elbow/Forearm Exam: normal inspection Wrist Exam: normal inspection Hand Exam: normal inspection Neuro/Tendon Exam: normal sensation, normal motor functions Mental Status Exam: alert, oriented x 3, cooperative Skin Exam: normal color, warm, dry SpO2: 98 - Course Nursing assessment & vital signs reviewed: Yes - Radiology Exams Shoulder X-ray Interpretation: Interpreted by me, Negative Ordered Tests: Active Orders 24 hr Category Date Time Status SHOULDER Stat Exams 05/20/19 14:55 Taken CULTURE,WOUND Stat Lab 05/20/19 14:45 Received - Progress Progress: unchanged - Departure Departure Disposition: Home Clinical Impression: Infected incision Condition: Stable Critical Care Time: No Referrals: KAREN BRICENO, MUSIC THERAPY TEACHER [Primary Care Provider] - Prescriptions: Hydrocodone/APAP 5-325 Tab^^^ [[place] 5-325 Tablet^^^] 1 tab PO Q6HPRN PRN #10 tablet MDD 6 PRN Reason: Pain Clindamycin HCl [Cleocin HCl] 300 mg PO TID 10 Days #30 capsule
== END 2019-05-20 15:47 | disposition home or self-care (01) ==
LOC: ED 14:19
DX: T81.40XA Infection following a procedure, unspecified, initial encounter (principal)
CPT/HCPCS: 73030; 87070; 87077; 87186; 99284

== ENCOUNTER 2020-03-12 08:19 | Emergency (ER) | payer MEDICARE ==
[2020-03-12 08:41] VITALS: O2SAT 98
[2020-03-12] MEDS ORDERED: NORCO 5/325 MG PO ONE (08:45)
[2020-03-12] MEDS ORDERED: NORCO 5/325 MG ONE (08:50)
--- NOTE | 2020-03-12 08:53 | ERPHSYRPT ---
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 Patient states onset was 3 days ago when he was sitting on the couch and the dog jumped on his lap stepping on his right testicle. Initial pain and then apparently had gotten better. However following morning he started noticing swelling and redness. Is normally incontinent of he is injury. Eyes any fever or nausea vomiting. Denies any dysuria. Of some mild right-sided suprapubic pain. Normally takes tramadol at home which has not helped. Timing/Duration: day(s) (3) Activites at Onset: rest Quality: aching Onset Location: right testicle Pain Radiation: groin Severity of Pain-Max: severe Severity of Pain-Current: moderate Modifying Factors: Improves With: analgesics Associated Symptoms: abdominal pain Prior abdominal problems: none Allergies/Adverse Reactions: No Known Drug Allergies Allergy (Verified 03/12/20 08:35) Home Medications: Gabapentin 600 mg PO BID 03/12/20 [History] Ibuprofen 800 mg PO Q8H 03/12/20 [History] Tramadol HCl 50 mg [Ultram 50 mg] 50 mg PO Q6H 03/12/20 [History] Hx Tetanus, Diphtheria Vaccination/Date Given: No Hx Influenza Vaccination/Date Given: No Hx Pneumococcal Vaccination/Date Given: No Travel Risk - International Travel Have you traveled outside of the country in past 3 weeks: No - Coronavirus Screening Are you exhibiting any of the following symptoms?: No Close contact with a COVID-19 positive Pt in past 14-21 Days: No - Past Medical History Pertinent Past Medical History: Yes Neurological History: No Pertinent History ENT History: No Pertinent History Cardiac History: No Pertinent History Respiratory History: No Pertinent History Endocrine Medical History: No Pertinent History Musculoskeletal History: Arthritis GI Medical History: No Pertinent History History: No Pertinent History Psycho-Social History: No Pertinent History Male Reproductive Disorders: Other Other Medical History: 4 NECK SURGERYS AND 2 SURGERIES ON EACH SHOULDER IN LAST 12 YEARS. - Past Surgical History Past Surgical History: Yes Neuro Surgical History: No Pertinent History Cardiac: No Pertinent History Respiratory: No Pertinent History Gastrointestinal: No Pertinent History Genitourinary: No Pertinent History Musculoskeletal: No Pertinent History, Orthopedic Surgery Male Surgical History: No Pertinent History Other Surgical History: shoulder surgery x 2 most recent November 2018. cervicle fusion. anal surgery - Social History Smoking Status: Current every day smoker How long have you smoked: years Exposure to second hand smoke: Yes Drug Use: none Patient Lives Alone: No - Review of Systems Constitutional: No Fever, No Chills Eyes: No Symptoms Ears, Nose, & Throat: No Symptoms Respiratory: No Cough, No Dyspnea Cardiac: No Chest Pain, No Edema, No Syncope Abdominal/Gastrointestinal: Abdominal Pain, No Nausea, No Vomiting, No Diarrhea Genitourinary Symptoms: Incontinence, Testicle Pain, No Dysuria, No Hematuria, No Flank Pain, No Penile Discharge Musculoskeletal: No Back Pain, No Neck Pain Skin: No Rash Neurological: No Dizziness, No Focal Weakness, No Sensory Changes Psychological: No Symptoms Endocrine: No Symptoms All Other Systems: Reviewed and Negative - Nursing Vital Signs Nursing Vital Signs: Initial Vital Signs Temperature 98.8 F 03/12/20 08:27 Pulse Rate 86 03/12/20 08:27 Blood Pressure 137/83 03/12/20 08:27 O2 Sat by Pulse Oximetry 98 03/12/20 08:27 Pain Scale Pain Intensity 6 - Physical Exam General Appearance: no apparent distress, alert Eye Exam: PERRL/EOMI Ears, Nose, Throat Exam: pharynx normal, moist mucous membranes Neck Exam: normal inspection, supple Respiratory Exam: normal breath sounds, lungs clear Cardiovascular Exam: regular rate/rhythm, No edema Gastrointestinal/Abdomen Exam: soft, No tenderness Male Genital Exam: inguinal tenderness, testicular tenderness (R), scrotal swellling, uncircumcised Back Exam: normal inspection, No CVA tenderness Extremity Exam: normal inspection, normal range of motion, No pedal edema Neurologic Exam: alert, oriented x 3, cooperative, sensation nml, No motor deficits Skin Exam: normal color, warm, dry, No rash SpO2 Interpretation: normal SpO2: 98 - Course Nursing assessment & vital signs reviewed: Yes - Radiology Ultrasound Exam Scrotal Ultrasound: discussed w/radiologist, No Torsion/Nml Flow, Other (Right orchi- epidydimitis wiht small hydrocele.) Ordered Tests: Active Orders 24 hr Category Date Time Status TESTICLE [US] Stat Exams 03/12/20 09:27 Completed UA W/RFX UR CULTURE Stat Lab 03/12/20 08:28 Completed Medication Summary Discontinued Medications Generic Name Dose Route Start Last Admin Trade Name Jacoby PRN Reason Stop Dose Admin Hydrocodone Bitart/Acetaminophen 1 tab 03/12/20 08:45 03/12/20 08:50 Tabor 5/325 Mg PO 03/12/20 08:46 1 tab STAT ONE Administration Hydrocodone Bitart/Acetaminophen Confirm 03/12/20 08:50 Tabor 5/325 Mg Administered 03/12/20 08:51 Dose 1 tab .ROUTE .STK-MED ONE Lab/Rad Data: Laboratory Results 03/12/20 Range/Units 08:28 Urine Color STRAW (YELLOW) Urine Appearance CLEAR (CLEAR) Urine pH 5.0 (5-6) Ur Specific [place] 1.000 (1.005-1.025) Urine Protein NEGATIVE (Negative) Urine Ketones NEGATIVE (NEGATIVE) Urine Blood NEGATIVE (0-5) Don/ul Urine Nitrite NEGATIVE (NEGATIVE) Urine Bilirubin NEGATIVE (NEGATIVE) Urine Urobilinogen NEGATIVE (0-1) mg/dL Ur Leukocyte Esterase TRACE (NEGATIVE) Urine WBC (Auto) 3-5 (0-5) /HPF Urine RBC (Auto) NONE (0-2) /HPF U Epithel Cells (Auto) NONE (FEW) /HPF Urine Bacteria (Auto) NONE (NEGATIVE) /HPF Urine Culture Reflexed NO (NO) Urine Glucose >=500 (NEGATIVE) mg/dL - Progress Progress: improved Progress Note: 03/12/20 10:15 Urinalysis and testicular ultrasound. Will rule out torsion due to trauma. Urinalysis is negative. Ultrasound shows right orchi-edidydimitis with small hydrocele. Left testicles are normal. No testicular torsion noted. Will prescribe Augmentin to patient and have urology follow-up. Advised conservative treatment such as wearing briefs/jockstrap's, anti-inflammatory and ice pack. Counseled pt/family regarding: lab results, diagnosis, need for follow-up, rad results - Departure Departure Disposition: Home Clinical Impression: Orchitis and epididymitis Condition: Stable Critical Care Time: No Referrals: KAREN BRICENO, INTERNATIONAL TRADE ANALYST [Primary Care Provider] - HUBER BERNABE [COURTESY STAFF] - ([facility]All for appointment) Instructions: Epididymitis (DC) Additional Instructions: Monitor symptoms closely. Take medication as prescribed. Testicular/scrotum support, anti-inflammatory and ice pack. Follow-up with Dr. Bernabe as discussed. You may also follow-up with PCP as well. Return to ER if worse. Prescriptions: Amox Tr/Potass Clav. 875 mg [Augmentin 875-125 Tablet] 1 each PO BID 14 Days #28 tablet
[2020-03-12 09:14] LABS: Appearance CLEAR (CLEAR); Bilirubin NEGATIVE (NEGATIVE); Blood NEGATIVE Ery/ul (0-5); Glucose >=500 mg/dL (NEGATIVE); Ketones NEGATIVE (NEGATIVE); Leukocyte Esterase TRACE (NEGATIVE); Nitrite NEGATIVE (NEGATIVE); Protein,Urine Dip NEGATIVE (Negative); Urobilinogen NEGATIVE mg/dL (0-1)
--- NOTE | 2020-03-12 09:47 | XRAY ---
Indication: Trauma. Two-dimensional testicular sonogram performed. Comparison: May 31, 2018. Both testicles remain homogeneous in echogenicity. Right testicle measures 4.0 x 3.8 x 2.9 cm and the left measures 3.3 x 3.2 x 1.7 cm. New enlarged right epididymis measuring 2.8 x 1.5 x 1.3 cm again with 8 mm epididymal cyst. Right testicle and right epididymis now demonstrates hyperemic color Doppler flow favoring orchiepididymitis. Small right hydrocele presumed reactive. Left epididymis normal in size measuring 1.7 x 1.1 x 0.7 cm again with 3 mm cyst. Impression: 1. New right orchiepididymitis with small reactive hydrocele. 2. Incidental bilateral epididymal cysts. 3. Negative left testicular sonogram.
[2020-03-12 09:57] VITALS: BP 127/63; PULSE 80
== END 2020-03-12 10:38 | disposition home or self-care (01) ==
LOC: ED 08:19
DX: N45.3 Epididymo-orchitis (principal); N50.811 Right testicular pain; W54.1XXA Struck by dog, initial encounter
CPT/HCPCS: 76870; 81001; 99284; A9270-GY

== ENCOUNTER 2021-11-16 09:43 | Emergency (ER) | payer MEDICARE ==
[2021-11-16 10:06] VITALS: O2SAT 97
[2021-11-16] MEDS ORDERED: TORAdol 30 mg Injection IM ONE (10:11)
--- NOTE | 2021-11-16 10:14 | ERPHSYRPT ---
- History of Present Illness Source: patient Exam Limitations: no limitations Patient Subjective Stated Complaint: PT HERE FOR RIGHT WRIST PAIN SINCE YESTERDAY AFTER A DRILL SNAPPED HE STATES HE TWISTED HES WRIST, Triage Nursing Assessment: PT ALERT, RESP EASY, SKIN W/D/P, FACE MASK IN PLACE, HAS SWELLING TO RIGHT WRSIT,HAS SRONG RADIAL PULSE, MOVES ALL FINGERS WELL Physician History: 56yo wm w R wrist pain after having it twisted while drilling yesterday. Pt is L handed and denies other injuries at this time. He has a h/o a grinding injury several years ago w dorsal deformity on distal ulna. Injury occurred at home. Occurred: yesterday Method of Injury: twisted Quality: constant Severity of Pain-Max: moderate Severity of Pain-Current: moderate Extremities Pain Location: wrist: left Modifying Factors: Improves With: movement Associated Symptoms: none Allergies/Adverse Reactions: No Known Drug Allergies Allergy (Verified 11/16/21 10:06) Home Medications: Gabapentin 600 mg PO BID 03/12/20 [History] Ibuprofen 800 mg PO Q8H 03/12/20 [History] Tramadol HCl 50 mg [Ultram 50 mg] 50 mg PO Q6H 03/12/20 [History] Hx Tetanus, Diphtheria Vaccination/Date Given: No Hx Influenza Vaccination/Date Given: No Hx Pneumococcal Vaccination/Date Given: No Immunizations Up to Date: Yes Travel Risk - International Travel Have you traveled outside of the country in past 3 weeks: No - Coronavirus Screening Are you exhibiting any of the following symptoms?: No Close contact with a COVID-19 positive Pt in past 14-21 Days: No - Vaccine Status Have you recieved a Covid-19 vaccination: Yes Laundry Aide: Moderna - Vaccination Dates Date of 2cond Vaccination (if applicable): 2020 - Review of Systems Constitutional: No Symptoms Eyes: No Symptoms Ears, Nose, & Throat: No Symptoms Respiratory: No Symptoms Cardiac: No Symptoms Abdominal/Gastrointestinal: No Symptoms Genitourinary Symptoms: No Symptoms Skin: No Symptoms Neurological: No Symptoms Psychological: No Symptoms Endocrine: No Symptoms Hematologic/Lymphatic: No Symptoms Immunological/Allergic: No Symptoms - Past Medical History Pertinent Past Medical History: Yes Neurological History: No Pertinent History ENT History: No Pertinent History Cardiac History: No Pertinent History Respiratory History: No Pertinent History Endocrine Medical History: No Pertinent History Musculoskeletal History: Arthritis GI Medical History: No Pertinent History History: No Pertinent History Psycho-Social History: No Pertinent History Male Reproductive Disorders: Other Other Medical History: 4 NECK SURGERYS AND 2 SURGERIES ON EACH SHOULDER IN LAST 12 YEARS. - Past Surgical History Past Surgical History: Yes Neuro Surgical History: No Pertinent History Cardiac: No Pertinent History Respiratory: No Pertinent History Gastrointestinal: No Pertinent History Genitourinary: No Pertinent History Musculoskeletal: No Pertinent History, Orthopedic Surgery Male Surgical History: No Pertinent History Other Surgical History: shoulder surgery x 2 most recent November 2018. cervicle fusion. anal surgery - Social History Smoking Status: Current every day smoker How long have you smoked: years Exposure to second hand smoke: Yes Drug Use: none Patient Lives Alone: Yes Significant Family History: no pertinent family hx - Nursing Vital Signs Nursing Vital Signs: Initial Vital Signs Temperature 97.0 F 11/16/21 10:01 Pulse Rate 61 11/16/21 10:01 Respiratory Rate 18 11/16/21 10:01 Blood Pressure 146/93 11/16/21 10:01 O2 Sat by Pulse Oximetry 97 11/16/21 10:01 Pain Scale Pain Intensity 4 Hypertensive - Physical Exam General Appearance: no apparent distress Eyes, Ears, Nose, Throat Exam: normal ENT inspection, TMs normal, pharynx normal, moist mucous membranes Neck Exam: normal inspection, non-tender, supple, full range of motion, No Brudzinski, No Kernig's, No meningismus, No carotid bruit Cardiovascular/Respiratory Exam: chest non-tender, normal breath sounds, regular rate/rhythm, heart sounds normal Abdominal Exam: non-tender, soft Back Exam: normal inspection, normal range of motion, No CVA tenderness, No vertebral tenderness Shoulder Exam: normal inspection, non-tender, no evidence of injury Elbow/Forearm Exam: normal inspection, non-tender, no evidence of injury Wrist Exam: bone tenderness (L wrist-chronic deformity distal L ulna/Minimal edema/TTP distal radius-ulna/Good radial pulse, distal sensation, and capillary return) Hand Exam: normal inspection, non-tender, no evidence of injury DTR - Upper Extremity Exam: bicep (R): 2+, bicep (L): 2+ Neuro/Tendon Exam: normal sensation, normal motor functions, normal tendon functions, responds to pain, no evidence tendon injury, No motor deficit, No sensory deficit Mental Status Exam: alert, oriented x 3, cooperative Skin Exam: normal color, warm, dry, No rash SpO2 Interpretation: normal SpO2: 97 O2 Delivery: Room Air - Course Nursing assessment & vital signs reviewed: Yes - Radiology Exams Wrist X-ray Interpretation: Interpreted by me (R wrist neg per ER read) Ordered Tests: Active Orders 24 hr Category Date Time Status Splint STAT Care 11/16/21 11:09 Completed WRIST (MIN 3 VIEWS) Stat Exams 11/16/21 Taken Medication Summary Discontinued Medications Generic Name Dose Route Start Last Admin Trade Name Jacoby PRN Reason Stop Dose Admin Ketorolac Tromethamine 30 mg 11/16/21 10:11 11/16/21 10:29 Ketorolac Tromethamine 30 Mg/Ml Inj IM 11/16/21 10:12 30 mg STAT ONE Administration Ketorolac Tromethamine Confirm 11/16/21 10:28 Ketorolac Tromethamine 30 Mg/Ml Inj Administered 11/16/21 10:29 Dose 30 mg .ROUTE .STK-MED ONE - Progress Progress: improved Progress Note: 11/16/21 10:28 30mg IM Toradol 11/16/21 11:07 Cock up splint R wrist per nursing/NVI Counseled pt/family regarding: diagnosis, need for follow-up, rad results - Departure Departure Disposition: Home Clinical Impression: Right wrist sprain Condition: Stable Critical Care Time: No Referrals: KAREN BRICENO NP [Primary Care Provider] - Follow up/PCP as directed [facility] - KIMO CULLEN NP [NON-STAFF PHY W/O PRIVILEGES] - Follow up/PCP as directed Instructions: Common Wrist Injuries (DC) Additional Instructions: Splint for 4-5 days Ice today/Heat in AM No lifting over 10pounds for 5 days Follow up with your family MD or orthopedic clinic Continue with home pain meds
[2021-11-16] MEDS ORDERED: TORAdol 30 mg Injection ONE (10:28)
[2021-11-16 11:09] VITALS: BP 157/101; PULSE 64
--- NOTE | 2021-11-16 19:26 | XRAY ---
Indication: Pain following fall. Comparison: None 3 view right wrist negative for acute fracture, dislocation, or soft tissue abnormalities.
== END 2021-11-16 11:15 | disposition home or self-care (01) ==
LOC: ED 09:43
DX: S63.501A Unspecified sprain of right wrist, initial encounter (principal); X50.1XXA Overexertion from prolonged static or awkward postures, initial encounter; X50.3XXA Overexertion from repetitive movements, initial encounter; M25.531 Pain in right wrist; Z72.0 Tobacco use; Z79.891 Long term (current) use of opiate analgesic; Z79.899 Other long term (current) drug therapy
CPT/HCPCS: 73110; 96372; 99283; J1885; L3908

== ENCOUNTER 2022-08-12 13:04 | Emergency (ER) | payer MEDICARE ==
[2022-08-12 13:15] VITALS: O2SAT 94
--- NOTE | 2022-08-12 13:54 | XRAY ---
Indication: Right hip pain 2 weeks. No known injury. Multiple contiguous axial images obtained through the pelvis with special attention to the osseous structures. Comparison: None Both hips demonstrates mild degenerative changes as evidenced by minimal space narrowing and superior acetabular spurring. SI joints are bilaterally symmetric. No acute fracture, dislocation, or suspicious bony lesions. Lumbosacral disc demonstrates broad-based disc bulge with vacuum disc phenomena and disc space loss. Visualized noncontrasted soft tissues demonstrates minimal sigmoid diverticulosis and seminal vesicle calcifications. No ventral/inguinal hernias or pathologic lymphadenopathy. Mild scattered aortoiliac calcifications. Impression: Minimal degenerative changes both hips and lumbosacral junction. Incidental sigmoid diverticulosis and arteriosclerotic disease. Remaining CT pelvis negative.
[2022-08-12] MEDS ORDERED: TORAdol 30 mg Injection IM ONE (14:05)
--- NOTE | 2022-08-12 14:05 | ERPHSYRPT ---
- History of Present Illness Source: patient Exam Limitations: no limitations Patient Subjective Stated Complaint: Pt states "For the past two weeks my right hip has been hurting and the more I walk on it the more it hurts. The pain goes all the way down to my foot." Triage Nursing Assessment: Pt presented alert and oriented X 3, skin pwd. pt ambulates with a limp. No swelling or bruising noted to right hip. no tenderness noted upon palpation. Physician History: 56 yo wm w R greater trochanter pain x 2 wks. pain is 2/10 at rest but up to a 10 w weight bearing. He denies injury. Pt states that he had a R hip steroid injection under fluoro many years ago. He is chronically incontinent of urine. Pt does suffer from chronic cervical/lumbar/shoulder pain. He denies focal weakness and numbness. Dysuria/hematuria/fever are all denied. Method of Injury: unknown Occurred: other (2 wks) Quality: sharpness Severity of Pain-Max: severe Severity of Pain-Current: mild Lower Extremities Pain: hip: right Modifying Factors: Improves With: movement Associated Symptoms: none (Worse w weight bearing) Allergies/Adverse Reactions: No Known Drug Allergies Allergy (Verified 11/16/21 10:06) Hx Tetanus, Diphtheria Vaccination/Date Given: No Hx Influenza Vaccination/Date Given: No Hx Pneumococcal Vaccination/Date Given: No Travel Risk - International Travel Have you traveled outside of the country in past 3 weeks: No - Coronavirus Screening Are you exhibiting any of the following symptoms?: No Close contact with a COVID-19 positive Pt in past 14-21 Days: No - Vaccine Status Have you recieved a Covid-19 vaccination: Yes Railroad Passenger Agent: Moderna - Vaccination Dates Date of 2cond Vaccination (if applicable): 2020 - Review of Systems Constitutional: No Symptoms Eyes: No Symptoms Ears, Nose, & Throat: No Symptoms Respiratory: No Symptoms Cardiac: No Symptoms Abdominal/Gastrointestinal: No Symptoms Genitourinary Symptoms: No Symptoms Skin: No Symptoms Neurological: No Symptoms Psychological: No Symptoms Endocrine: No Symptoms Hematologic/Lymphatic: No Symptoms Immunological/Allergic: No Symptoms - Past Medical History Pertinent Past Medical History: Yes Neurological History: No Pertinent History ENT History: No Pertinent History Cardiac History: No Pertinent History Respiratory History: No Pertinent History Endocrine Medical History: No Pertinent History Musculoskeletal History: Arthritis, Other GI Medical History: No Pertinent History History: No Pertinent History Psycho-Social History: No Pertinent History Male Reproductive Disorders: Other Other Medical History: bladder incontinence (d/t spider bite ~15 years ago), cervical surgery (x4), B shoulder surgeries - Past Surgical History Past Surgical History: Yes Neuro Surgical History: No Pertinent History Cardiac: No Pertinent History Respiratory: No Pertinent History Gastrointestinal: No Pertinent History Genitourinary: No Pertinent History Musculoskeletal: No Pertinent History, Orthopedic Surgery Male Surgical History: No Pertinent History Other Surgical History: shoulder surgery x 2 most recent November 2018. cervicle fusion. anal surgery. right carpal tunnel. right elbow - Social History Smoking Status: Current every day smoker How long have you smoked: years Exposure to second hand smoke: Yes Drug Use: none Patient Lives Alone: Yes Significant Family History: no pertinent family hx - Nursing Vital Signs Nursing Vital Signs: Initial Vital Signs Temperature 97.2 F 08/12/22 13:10 Pulse Rate 84 08/12/22 13:10 Respiratory Rate 20 08/12/22 13:10 Blood Pressure 129/82 08/12/22 13:10 O2 Sat by Pulse Oximetry 94 L 08/12/22 13:10 Pain Scale Pain Intensity 6 WNL - Physical Exam General Appearance: no apparent distress Eyes, Ears, Nose, Throat Exam: normal ENT inspection, TMs normal, pharynx normal, moist mucous membranes Neck Exam: normal inspection, non-tender, supple, full range of motion, No Brudzinski, No Kernig's, No meningismus, No carotid bruit Cardiovascular/Respiratory Exam: normal breath sounds, regular rate/rhythm, heart sounds normal Gastrointestinal/Abdominal Exam: non-tender, soft Back Exam: normal inspection, normal range of motion, No CVA tenderness, No vertebral tenderness Hips Exam: right: bone tenderness (R greater trochanter TTP) Legs Exam: bilateral leg: non-tender, normal inspection, normal range of motion, no evidence of injury Knees Exam: bilateral knee: non-tender, normal inspection, normal range of motion, no evidence of injury, bone tenderness Ankle Exam: bilateral ankle: non-tender, normal inspection, normal range of motion, no evidence of injury Foot Exam: bilateral foot: non-tender, normal inspection, normal range of motion, no evidence of injury Neuro/Tendon Exam: normal sensation, normal motor functions, normal tendon functions, responds to pain, no evidence tendon injury, No motor deficit, No sensory deficit Mental Status Exam: alert, oriented x 3, cooperative Skin Exam: normal color, warm, dry SpO2 Interpretation: normal SpO2: 94 O2 Delivery: Room Air - Course Nursing assessment & vital signs reviewed: Yes - CT Exams Pelvis CT Interpretation: Discussed w/radiologist (Minimal DJD B hips/DDD) Ordered Tests: Active Orders 24 hr Category Date Time Status PELVIS WITHOUT CONTRAST [CT] Stat Exams 08/12/22 13:21 Completed Medication Summary Discontinued Medications Generic Name Dose Route Start Last Admin Trade Name Freq PRN Reason Stop Dose Admin Ketorolac Tromethamine 30 mg 08/12/22 14:05 08/12/22 14:10 Ketorolac Tromethamine 30 Mg/Ml Inj IM 08/12/22 14:06 30 mg STAT ONE Administration Ketorolac Tromethamine Confirm 08/12/22 14:09 Ketorolac Tromethamine 30 Mg/Ml Inj Administered 08/12/22 14:10 Dose 30 mg .ROUTE .STK-MED ONE - Progress Progress: improved Progress Note: 08/12/22 14:12 30mg IM Toradol w mild improvement in pain No food or housing insecurities noted CT result reviewed and shared w pt Pt referred to Ortho clinic 08/12/22 15:17 Counseled pt/family regarding: diagnosis, need for follow-up, rad results Medical Desision Making - Independent Historian Additional History obtained from: Spouse - Diagnostic Testing Diagnostic test were ordered, analyzed, and reviewed by me: Yes Radiological Interpretation: Discussed w/ radiologist - Risk of complications Low Risk: Low risk of morbidity from additional dx testing or treatment - Departure Departure Disposition: Home Clinical Impression: Trochanteric bursitis of right hip Condition: Stable Critical Care Time: No Referrals: KAREN BRICENO NP [Primary Care Provider] - Follow up/PCP as directed [facility]TH[facility] - KIMO CULLEN NP [NON-STAFF PHY W/O PRIVILEGES] - Follow up/PCP as directed Instructions: Hip Bursitis (DC) Additional Instructions: Rest/Heat/massage Toradol/Norflex as needed for pain(Do not take Ibuprofen with toradol) Follow up in Orthopedic clinic M-Fr 8-10 Return to ER for increasing pain Prescriptions: Orphenadrine Citrate 100 mg [Norflex 100 MG Tablet] 100 mg PO BID PRN PRN #10 tab PRN Reason: Pain Ketorolac Trometh 10 mg Tab [TORAdol 10 MG TABLET] 10 mg PO TID PRN PRN #10 tablet PRN Reason: Pain
[2022-08-12 14:08] VITALS: BP 92/78; PULSE 78
[2022-08-12] MEDS ORDERED: TORAdol 30 mg Injection ONE (14:09)
== END 2022-08-12 14:29 | disposition home or self-care (01) ==
LOC: ED 13:04
DX: M70.61 Trochanteric bursitis, right hip (principal); Z72.0 Tobacco use
CPT/HCPCS: 72192; 96372; 99283; J1885